=== PATIENT | female | born 1940 | race Caucasian/White ===

== ENCOUNTER 2016-11-20 11:38 | Emergency (ER) | payer MEDICARE, OTHER ==
[~2016-11-20] VITALS: Ht 165.1 cm; Wt 117.5 kg
[~2016-11-20 11:38] MED LIST: ACET325T9 PO; ASPI-482 PO; CITA20TA9 PO; CITA40TA12 PO; ENOX120D SQ; FLUT16SP2 NS; GABA-586 PO; HYDR-2762 PO; HYDR12.53 PO; LOSA25TA4 PO; POTA20TA4 PO; SIMV20TA3 PO; SIMV40TA3 PO; WARF1TAB PO
[2016-11-20 12:15] VITALS: BP 137/65
[2016-11-20] MEDS ORDERED: AMOXICILLIN 250 MG CAPSULE PO ONE (12:45)
[2016-11-20] MEDS ORDERED: HYDROCODONE/APAP 7.5/325MG TABLET. PO ONE (12:45)
[2016-11-20] MEDS ORDERED: AMOX875T PO (12:59)
--- NOTE | 2016-11-20 13:00 | PHYS DOC ---
Past Medical History Past Medical History: Depression, High Cholesterol, Hypertension, [place], Stroke Past Surgical History: Hysterectomy, Tonsillectomy, Other Additional Past Surgical Histo: AORTIC VALVE REPLACED Alcohol Use: None Drug Use: None Adult General Chief Complaint Chief Complaint: TOOTH ACHE OR PAIN HPI HPI Patient is a 76 year old female with history of hypertension high cholesterol depression and CVA who presents today with upper and lower dental pain rated at 9/10 that began in October. Patient states she would like all her teeth removed but she does not have money. Patient denies any fever. Denies any trismus. She states she has been taking hydrocodone with no relief. PCP Dr. Acharya Review of Systems Review of Systems Constitutional: Denies fever or chills [] Eyes: Denies change in visual acuity, redness, or eye pain [] HENT: Dental pain Musculoskeletal: Denies back pain or joint pain [] Integument: Denies rash or skin lesions [] Neurologic: Denies headache, focal weakness or sensory changes [] Endocrine: Denies polyuria or polydipsia [] Current Medications Current Medications Current Medications Medications (Trade) Dose Ordered Sig/Yajaira Start Time Stop Time Status Last Admin Dose Admin Acetaminophen/ Hydrocodone Bitart (Lortab 7.5/325) 2 tab 1X ONCE 11/20/16 12:45 11/20/16 12:46 DC 11/20/16 12:48 2 TAB Amoxicillin (Amoxil) 1,000 mg 1X ONCE 11/20/16 12:45 11/20/16 12:46 DC 11/20/16 12:49 1,000 MG Allergies Allergies Allergies Coded Allergies Type Severity Reaction Last Updated Verified erythromycin base Allergy Intermediate 12/10/15 Yes lisinopril Allergy Intermediate coughing 12/10/15 Yes oxycodone Allergy Intermediate hallucinations 12/10/15 Yes valsartan Allergy Intermediate 11/26/14 Yes Physical Exam Physical Exam Constitutional: Well developed, well nourished, no acute distress, non-toxic appearance. [] HENT: Normocephalic, atraumatic, bilateral external ears normal, oropharynx moist, no oral exudates, nose normal. [] Left upper teeth are broken, missing teeth all over the mouth, severely infected dental caries noted. No gum swelling or erythema Skin: Warm, dry, no erythema, no rash. [] Back: No tenderness, no CVA tenderness. [] Extremities: No tenderness, no cyanosis, no clubbing, ROM intact, no edema. [] Neurologic: Alert and oriented X 3, normal motor function, normal sensory function, no focal deficits noted. [] Psychologic: Affect normal, judgement normal, mood normal. [] Current Patient Data Vital Signs Vital Signs Date Time Temp Pulse Resp B/P Pulse Ox O2 Delivery O2 Flow Rate FiO2 11/20/16 12:15 97.6 70 20 98 Room Air 97.6 EKG EKG [] Radiology/Procedures Radiology/Procedures [] Course & Med Decision Making Course & Med Decision Making Pertinent Labs and Imaging studies reviewed. (See chart for details) Patient has infected dental caries. She has hydrocodone at home, encouraged her to continue taking it for pain. Discharge her with amoxicillin. Provided a dental list for follow-up. Dragon Disclaimer Dragon Disclaimer This electronic medical record was generated, in whole or in part, using a voice recognition dictation system. Departure Departure Impression: Primary Impression: Dentalgia Additional Impression: Infected dental caries Disposition: HOME, SELF-CARE Condition: STABLE Referrals: SHANTA ACHARYA MD (PCP) Please follow-up with a dentist as soon as possible Patient Instructions: Dental Caries Additional Instructions: You were seen for infected dental caries. Follow-up with a dentist as soon as possible, continue taking hydrocodone at home as needed for pain Scripts Amoxicillin 875 Mg Tablet1 Tab PO BID #20 TAB Prov:SAVANAH PATEL APRN 11/20/16 Problem Qualifiers SAVANAH PATEL APRN Nov 20, 2016 13:00
== END 2016-11-20 13:13 | disposition home or self-care (01) ==
LOC: ER 11:38
DX: K02.9 Dental caries, unspecified (principal); K08.89 Other specified disorders of teeth and supporting structures; I10 Essential (primary) hypertension; E78.00 Pure hypercholesterolemia, unspecified; I25.2 Old myocardial infarction; Z86.73 Personal history of transient ischemic attack (TIA), and cerebral infarction without residual deficits; Z88.1 Allergy status to other antibiotic agents; Z88.5 Allergy status to narcotic agent; Z88.8 Allergy status to other drugs, medicaments and biological substances
CPT/HCPCS: 99283

== ENCOUNTER → 2018-01-24 | Outpatient (CLI) | payer MEDICARE, OTHER | END | disposition home or self-care (01) | LOC: ECHO 10:31 | DX: I35.8 Other nonrheumatic aortic valve disorders (principal); R06.02 Shortness of breath; Z95.2 Presence of prosthetic heart valve | CPT/HCPCS: 93306 ==

== ENCOUNTER → 2019-05-26 | Outpatient (CLI) | payer MEDICARE, OTHER ==
[~2019-05-26] MED LIST changes: +AMOX875T PO; -GABA-586 PO; +GABA300C18 PO; -HYDR-2762 PO; +HYDR-2765 PO; -HYDR12.53 PO; +HYDR12.575 PO; -LOSA25TA4 PO; +LOSA25TA54 PO; -WARF1TAB PO; +WARF1TAB74 PO; +ZOLPIDEM 5 MG TABLET. PO ONE
--- NOTE | 2019-05-28 13:00 | SLEEP ---
DATE OF STUDY: 05/26/2019 SLEEP STUDY ATTENDING PHYSICIAN: Jaguar Hernandez MD The patient is a 78-year-old who weighs 292 pounds with a BMI of 47. The patient had sleep study at some 10 years ago and was positive for FIDEL at an unknown pressure. She gained 30 pounds since her last sleep study and has increased daytime somnolence. She was here for a split night study. During the night study, the patient spent 444 minutes in bed, slept for 365 minutes with a sleep efficiency of 82%. Sleep latency was 62 minutes with a REM latency of 145 minutes. Overall, sleep architecture showed normal stage 1 sleep, reduced stage 2 sleep, increased slow wave and normal REM sleep. EKG monitoring revealed normal sinus rhythm. Occasional PVCs seen. Average heart rate 66 beats per minute. PLMS were seen at index of 26 per hour and 2 per hour caused EEG arousals. During the initial diagnostic portion of the study, the patient slept for 75 minutes. The patient had 46 obstructive apneas, no mixed or central apneas and 81 hypopneas. The patient's AHI was 102 per hour, supine AHI 102 per hour. REM sleep was not seen during the diagnostic portion. Nocturnal oximetry study revealed a mean oxygen saturation of 91% with the lowest of 56%. 89% of time oxygen saturation remained between 80% and 89%. The patient met the criteria for CPAP initiation. It was started at 5 cm water and titrated up to 20 cm water. At the final pressure, the patient slept for 85 minutes. The patient had supine sleep, but no REM sleep. The patient's AHI was reduced to 3 per hour and oxygen saturation remained in the mid to high 80s with a spot desaturation of 80%. The patient used small size full face mask. IMPRESSION: 1. Severe sleep apnea-hypopnea syndrome at an AHI of 102 per hour. 2. Moderate periodic limb movements. 3. Nocturnal hypoxia secondary to combination of sleep apnea and suspected obesity hypoventilation syndrome. Not completely resolved with CPAP only. RECOMMENDATIONS: 1. CPAP at 20 cm of water with 1 liter of supplemental oxygen should be used on a nightly basis. 2. Follow up in 4-6 weeks to assess compliance with CPAP and to document clinical improvement. 3. Weight loss is strongly advised. 4. Avoid [employer] depressants. 5. Cautioned regarding driving until symptoms of sleep apnea resolve with the use of CPAP. 6. The PLMS does not need to be treated unless the patient has symptoms of restless legs during the day. DIONNE RODGERS MD DR: SILVA/juan JOB#: [id number] / [id number] JAGUAR Hu MD
== END | disposition home or self-care (01) ==
LOC: SLPLAB 18:29
PROVIDERS: ATTEND Family Medicine
DX: G47.33 Obstructive sleep apnea (adult) (pediatric) (principal); G47.34 Idiopathic sleep related nonobstructive alveolar hypoventilation
CPT/HCPCS: 95810

== ENCOUNTER → 2020-04-22 | Outpatient (CLI) | payer MEDICARE ==
[~2020-04-22] MED LIST changes: +SIMV20TA18 PO; -SIMV20TA3 PO; +SIMV40TA18 PO; -SIMV40TA3 PO; +WARF1TAB2 PO; -WARF1TAB74 PO; -ZOLPIDEM 5 MG TABLET. PO ONE
--- NOTE | 2020-04-23 16:40 | RAD ---
Examination: 1. Bilateral digital diagnostic mammogram. 2. Limited left breast ultrasound. INDICATION: 79-year-old woman on blood thinners with a palpable lump in the upper outer left breast noticed over the past 2 weeks. She is due for screening. COMPARISON: 10/07/2004, 07/24/2013. TECHNIQUE: CC and MLO views of both breasts were obtained with 2-D and 3-D technique and reviewed with computer-aided detection. Targeted ultrasound of the left breast in the area of palpable concern was also performed. FINDINGS: The breasts are almost entirely fatty replaced. The right mammogram is negative. Left mammogram shows a round 1.4 cm mixed density circumscribed mass in the anterior lower outer quadrant left breast at the approximate 4:00 position 6 cm from the nipple that is new and was therefore pursued by targeted left breast ultrasound. Targeted left breast ultrasound showed the superficial 1.4 cm oval parallel orientation mass with low-level internal echoes and no internal vascularity that correlates with the mammographic finding. In the setting of anticoagulation, this most likely represents an organizing hematoma or non calcified fat necrosis, however it is reasonable to obtain a tissue sample to confirm this suspected diagnosis and the patient is sufficiently anxious about it that she requests biopsy. Discussed with patient with her present. Their questions were answered to their satisfaction. IMPRESSION: Low index of suspicion for malignancy new 1.4 cm mixed density mass in the upper outer left breast correlating with the palpable lump. Ultrasound-guided biopsy is recommended. Management of her anticoagulation will need to be coordinated with her supervising public housing interviewer prior to biopsy scheduling. BI-RADS Category 4 Findings suspicious for malignancy. Ultrasound guided biopsy recommended Discussed with Dr. Eddi Hernandez by telephone at 4:33 pm on 04/23/2020. He plans to assist with care-coordination regarding patient's anticoagulation management.
== END | disposition home or self-care (01) ==
LOC: MAMMO 12:52
PROVIDERS: ATTEND Family Medicine
DX: R92.2 Inconclusive mammogram (principal); N63.23 Unspecified lump in the left breast, lower outer quadrant
CPT/HCPCS: 76641; 77066; G0279; 77062

== ENCOUNTER → 2020-05-27 | Outpatient (CLI) | payer MEDICARE ==
--- NOTE | 2020-05-28 18:24 | RAD ---
Examination: 1. Ultrasound-guided left breast core needle biopsy. 2. Left digital postprocedure mammogram. INDICATION: 79-year-old on with a left breast lump of low index of suspicion for malignancy, possibly an organizing hematoma in the setting of local trauma and history of anticoagulation, recommended for histologic confirmation. COMPARISON: Bilateral digital diagnostic mammogram and left breast ultrasound of 04/22/2020. TECHNIQUE AND FINDINGS: Informed consent was obtained and an appropriate procedural pause observed. Using standard technique, ultrasound guidance and local anesthesia, a single 14-gauge core biopsy sample of the palpable mass in the lateral left breast at the approximate 3:30 o'clock position 6 cm from the nipple was obtained and an S-shaped biopsy marker was deployed in the mass. Hemostasis was ensured with direct breast compression for several minutes. Patient tolerated the procedure without incident. Puncture site was dressed and a postprocedure mammogram was obtained showing satisfactory positioning of the S-shaped biopsy marker within the mass which is now smaller than prebiopsy after just a single pass. No apparent complications. Patient was discharged in stable condition with postprocedure instructions and she will follow up with her referring physician. IMPRESSION: Successful left breast ultrasound-guided core needle biopsy of a palpable mass in the lateral left breast. Pathology results are pending. An addendum will be issued once pathology results become available. Electronically signed by: Lavon Rice MD (05/28/2020 6:21 PM) [id number]
--- NOTE | 2020-05-31 11:07 | PATHOLOGY ---
[facility] Accession Number: [id number] . 01 Material submitted: . breast - LEFT BREAST TISSUE. Modifiers: left . 01 Clinical history: . LEFT BREAST NODULE/MASS 330 . 02 Diagnosis: Breast "left - nodule 3:30", needle biopsy: - Robust foreign body giant cell response, with chronic inflammation, lipogranulomatous inflammation, and numerous pigment laden macrophages, and fibrosis. - Negative for hyperplasia, atypia, and malignancy. (MLK/db; 05/28/2020) LBQ 05/31/2020 1048 Local . 02 Electronically signed: . Marilou Robert MD, Pathologist NPI- [id number] . 01 Gross description: . The specimen is received in formalin, labeled "Leonor Kraus, left breast 3:30 6cmFN" and consists of a needle core of yellow peter tissue measuring 1.8 cm in length and 0.2 cm in diameter which is entirely submitted in A1. The specimen was collected at 10:50 AM on 05/27/2020 and placed in formalin at 10:50 AM. The cold ischemic time is less than 1 minute and the total formalin fixation time is greater than 6 hours for less than 72 hours. (SDY; 05/27/2020) SYU/SYU 05/27/2020 1746 Local . 02 Pathologist provided ICD-10: N61.0 . 02 CPT . 110987 Specimen Comment: A courtesy copy of this report has been sent to [phone], [phone] Specimen Comment: [id number], , Specimen Comment: Report sent to ,DR FORD,DR RESENDEZ / DR BILLS Performed at: 01 [facility] [address] [id number] MD William Kohler MD Phone: [phone] Performed at: 02 [facility] [address] [id number] MD Jesús Whiteside MD Phone: [phone]
== END | disposition home or self-care (01) ==
LOC: US 09:51
PROVIDERS: ATTEND Surgery
DX: N63.23 Unspecified lump in the left breast, lower outer quadrant (principal); N61.0 Mastitis without abscess; I12.9 Hypertensive chronic kidney disease with stage 1 through stage 4 chronic kidney disease, or unspecified chronic kidney disease; N18.9 Chronic kidney disease, unspecified; E11.22 Type 2 diabetes mellitus with diabetic chronic kidney disease; E78.5 Hyperlipidemia, unspecified; K21.9 Gastro-esophageal reflux disease without esophagitis; F41.9 Anxiety disorder, unspecified; F32.9 Major depressive disorder, single episode, unspecified; Z88.8 Allergy status to other drugs, medicaments and biological substances; Z79.82 Long term (current) use of aspirin; Z79.899 Other long term (current) drug therapy; Z98.51 Tubal ligation status; Z98.890 Other specified postprocedural states; Z79.84 Long term (current) use of oral hypoglycemic drugs
CPT/HCPCS: 19083; 77065; 88305; C1713; 19081; 76942